=== PATIENT | female | born 1960 ===

== ENCOUNTER 2017-01-10 14:12 | Outpatient (CLI) | payer MEDICAID ==
--- NOTE | 2017-01-10 15:17 | XRay Report ---
Left knee: Pain. Large periarticular spurs involve the medial joint compartment with small tibial periarticular spur of the lateral compartment. In the lateral projection there appear to be subchondral cysts involving the anterior articulation of the medial condyle. The retropatellar space is preserved. There is no effusion and no swelling. Impressions: Degenerative joint changes predominantly affecting the medial compartment.
== END 2017-01-10 14:13 | disposition home or self-care (01) ==
LOC: SPVIMAG 14:12
PROVIDERS: ATTEND Orthopaedic Surgery Sports Medicine
DX: M17.12 Unilateral primary osteoarthritis, left knee (principal)